=== PATIENT | female | born 1970 | race Caucasian/White ===

== ENCOUNTER 2019-12-29 08:17 | Outpatient (CLI) | payer BC, SELFPAY | END 2019-12-29 08:18 | disposition home or self-care (01) | PROVIDERS: PCP Family Medicine; Visit Provider Obstetrics & Gynecology | DX: Z01.812 Encounter for preprocedural laboratory examination (principal); Z11.59 Encounter for screening for other viral diseases; N93.9 Abnormal uterine and vaginal bleeding, unspecified | CPT/HCPCS: 36415; 86850; 86900; 86901 ==

== ENCOUNTER 2020-01-02 | Outpatient (CLI) | payer BC, SELFPAY ==
[2020-01-02 18:54] LABS: SARS-CoV-2 RNA PCR Negative
== END 2020-01-02 00:01 | disposition home or self-care (01) ==
LOC: ANHCOVIDDT
PROVIDERS: Visit Provider Obstetrics & Gynecology
DX: Z01.812 Encounter for preprocedural laboratory examination (principal); Z11.59 Encounter for screening for other viral diseases
CPT/HCPCS: 87635; C9803; U0003

== ENCOUNTER 2020-01-04 01:26 | Day surgery (SDC) | payer BC, SELFPAY ==
[2019-12-26 13:56] VITALS: BMI 22.2
[2020-01-04] VITALS (15 sets, daily range): BP systolic 107–142; BP diastolic 67–85; PULSE 51–86; RESP 12–19; TEMP 36.6–37.1; O2SAT 94–100
[2020-01-04] MEDS: LACTATED RINGERS 1,000 ML 30 ML IV CONT (06:40)
--- NOTE | 2020-01-04 06:47 | P.PNAN_ITS ---
Anes - Initial Pre Proc Eval Procedure: Operation Date: 01/04/20 07:30 Proposed Procedures p Total Laparoscopic Hysterectomy With Bilateral Salpingo-Oophorectomy - Eamon Mcqueen MD Date/Time: 01/04/20 06:47 Surgeon: Eamon Mcqueen MD Pre Op Diagnosis: Abnormal Uterine Bleeding Patient Data Age: 49 Gender: F Height: 5 ft 8 in Weight: 66.4 kg Allergies Allergy/AdvReac Type Severity Reaction Status Date / Time No Known Allergies Allergy Verified 12/26/19 13:54 Home Medications Medication Instructions Recorded Confirmed Type levothyroxine 100 mcg PO DAILY 12/26/19 12/26/19 History Patient hx anesthesia problems: none Family hx anesthesia problems: none ON LICENSE OF [facility] Past Medical History Medical History Hypothyroid Family History Family History Mother Patient's mother is in good health Father Patient's father is in good health Social History Social History Smoking status: Never smoker Alcohol intake: never Anes - Eval Final PreProcedure Day of Procedure 01/04/20 06:47 Patient weight: normal Heart: regular rate and rhythm Lungs: clear to auscultation Airway: Mallampati scale class II Neurological: alert and oriented Last oral intake: >/= 8 hours ASA classification: II Emergent: no Anesthetic plan: proceed Anesthesia type and monitoring: general ETT and standard monitoring Informed Consent: The patient's anesthetic plan and its attendant risks and be nefits were discussed with the patient/family/POA. Questions were solicited and answers provided to the satisfaction of the patient/family/POA.
[2020-01-04] MEDS: IBUPROFEN IV 800 MG/200 ML 800 MG/200 ML BAG 400 MG IVPB (07:00)
--- NOTE | 2020-01-04 07:25 | WPDHPUPDATE1 ---
History and Physical Update Update Date/Time: 01/04/20 07:25 History and Physical has been reviewed, including an updated exam of the patient. There are NO changes in the patient's condition. Risks, benefits, and alternatives have been discussed and questions answered. Patient agrees to proceed with procedure.
[2020-01-04] MEDS: ceFAZolin 2 GM/D5W 50 ML 2 GM/50 ML BAG IVPB (07:26)
--- NOTE | 2020-01-04 09:12 | P.OP_ITS ---
Procedure Note - Detailed Date of procedure: 01/04/20 Pre-op diagnosis: Abnormal Uterine Bleeding Severe menorrhagia Post-op diagnosis: same Procedure performed: Total laparoscopic hysterectomy bilateral salpingo- oophorectomy Description of procedure: The patient was taken to the operating room. She was prepped and draped in the dorsal lithotomy position. A speculum was placed in the vagina. The cervix was grasped with a tenaculum. Stay sutures were placed at 3 and 9:00 a.m. of 0 Vicryl. The stay sutures were brought through the Adonis up. The ASHIA manipulator was placed in the vagina with a fixed Adonis cup. The cup was then pushed up around the cervix. The sutures were tied to the handle of the ASHIA manipulator. A 5 mm incision was made on the abdominal skin of the left upper quadrant using a scalpel. A 5 mm trocar was inserted into the intra-abdominal cavity under direct visualization the scope. Pneumoperitoneum was achieved. An 11 mm incision was made in the left lower quadrant of the abdomen with a scalpel. A 11 mm trocar was inserted into the intra-abdominal cavity under direct visualization the scope. A 5 mm periumbilical incision was made. A 5 mm scope was placed into the intra-abdominal cavity under direct visualization of the scope. The ureters were identified. The ureters were observed to be away from the infundibulopelvic ligaments. These infundibulopelvic ligaments were i solated, cauterized, and transected with LigaSure cautery. This was done in a bilateral fashion. The para ovarian tissue along the pelvic sidewall was cauterized and transected in a bilateral fashion using the ligature cautery. The round ligaments were cauterized and transected bilaterally with LigaSure cautery. The broad ligaments were cauterized and transected along the lateral aspects of the uterus down the level of the uterine arteries. A bladder flap was created using sharp and blunt dissection. The ureters were dissected out bilaterally down to the level of the uterine arteries. The could be visualized from the pelvic brim down the uterine arteries. Staying very close to the cervix the parametrium was cauterized transected in a stepwise fashion down to the level of the Adonis cup. The Bladder flap was moved distally over the Adonis cup using sharp and blunt dissection. The cup was visualized and a complete 360 degree papillary around the cervix. An incision was made with unipolar cautery down under the Adonis cup creating a colpotomy incision all the way around the cervix. The uterus tubes and ovaries were taken out through the vagina. A pneumo occluder was placed in the vagina. The vagina was closed with 0 V lock suture in a running fashion. The ureters were identified again and found to be intact elevated and the uterine arteries. The pelvis was irrigated with a copious amount of antibiotic irrigation. The pneumoperitoneum was reduced. The trocars were removed. The skin was closed subcuticular 4 Monocryl covered with Dermabond. The pneumo occluder was removed from the vagina. The vagina was irrigated with Betadine. The patient tolerated the procedure well. She was taken to the recovery room in stable condition. Sponge lap and needle counts were correct x2. Anesthesia: GETA Surgeon: Eamon Mcqueen MD Estimated blood loss (mL): 50 Drains: No Packing: No Pathology: yes Complications: No immediate complications Condition: stable Disposition: PACU Findings: Grossly normal-appearing uterus tubes and ovaries.
--- NOTE | 2020-01-04 09:54 | OBPPTRN ---
Patient transferred to room # 288 via stretcher. Oriented to. Patient verbalizes understanding.
[2020-01-04] MEDS: KETOROLAC 30 MG/ML VIAL (*BKC) IV PUSH (12:08)
[2020-01-04] MEDS: DEXTROSE 5%/LACTATED RINGERS 1,000 ML 125 ML IV CONT (15:49)
[2020-01-05 04:50] VITALS: BP 121/83; PULSE 65; RESP 18; TEMP 36.5
[2020-01-05] MEDS: LEVOTHYROXINE SODIUM 100 MCG TABLET PO (06:53)
[2020-01-05] MEDS: IBUPROFEN 600 MG TABLET PO (07:02)
--- NOTE | 2020-01-05 08:07 | PM.GYNPNOP ---
DISTRICT SUPERINTENDENT - A/P Postoperative Procedures: Procedures Operation Date: 01/04/20 07:30 Actual Procedures Side Surgeon p Total Laparoscopic Hysterectomy With Bilateral Salpingo-Oophorectomy Not Applicable Eamon Mcqueen MD Postoperative day: 1 Postoperative status: doing well and other (Tollerating Regular Diet) Postoperative plan: routine post-op care and discharge Time Spent With Patient Time: Total time spent is greater than 50% in coordination of care (as documented) at patient's floor/unit and/or counseling patient: Time with patient: 15 - 25 minutes DISTRICT SUPERINTENDENT- PN:Subj Post-Op Subjective Date/time seen: 01/05/20 08:07 Subjective: patient reports feeling better, pain is well controlled and patient is tolerating oral intake Exam Const: General: cooperative, healthy appearing, comfortable and no acute distress Resp: Auscultation: no crackles, no rales, no rhonchi and no wheezes Cardio: Rhythm: regular rhythm Heart sounds: no click and no murmurs GI: Inspection: non-distended Auscultation: normal bowel sounds Other: Incisions - CDI Extrem: General: normal to inspection, no pedal edema and no calf tenderness DISTRICT SUPERINTENDENT - PN: Obj Data Vital Signs Vital Signs: Vital Signs - 24 hr 01/04/20 09:00 01/04/20 09:15 01/04/20 09:30 Temperature 97.8 F Pulse Rate 76 64 55 L Respiratory Rate 14 12 13 Blood Pressure 115/67 107/71 112/69 Pulse Oximetry 100 100 98 01/04/20 09:45 01/04/20 09:56 01/04/20 10:00 Temperature 98.8 F Pulse Rate 56 L 54 L 58 L Respiratory Rate 19 16 16 Blood Pressure 114/72 117/70 142/85 H Pulse Oximetry 99 100 98 01/04/20 10:15 01/04/20 10:30 01/04/20 11:00 Temperature Pulse Rate 51 L 54 L 67 Respiratory Rate 16 16 16 Blood Pressure 122/81 117/79 131/84 Pulse Oximetry 97 97 99 01/04/20 12:00 01/04/20 13:00 01/04/20 14:00 Temperature 98.2 F 98.2 F Pulse Rate 73 67 84 Respiratory Rate 16 16 16 Blood Pressure 123/77 120/82 119/79 Pulse Oximetry 95 96 94 01/04/20 15:55 01/04/20 19:20 01/04/20 23:50 Temperature 98.1 F 98.4 F 97.8 F Pulse Rate 86 81 56 L Respiratory Rate 18 17 17 Blood Pressure 134/82 114/77 113/72 Pulse Oximetry 01/05/20 04:50 Temperature 97.7 F Pulse Rate 65 Respiratory Rate 18 Blood Pressure 121/83 Pulse Oximetry Intake/Output Intake/Output: Intake & Output 01/02/20 01/03/20 01/04/20 01/05/20 23:59 23:59 23:59 23:59 Intake Total 850 1000 Output Total 750 1450 Balance 100 -450 Meds/Results Medications: Active Medications Generic Name Dose Route Start Last Admin Trade Name Freq PRN Reason Stop Dose Admin Hydrocodone Bitart/Acetaminophen 1 tab 01/04/20 09:47 Yulan 5-325 Mg PO Q3H PRN Pain Rated 5 or Less Hydrocodone Bitart/Acetaminophen 1 tab 01/04/20 09:47 Yulan 10-325 Mg PO Q3H PRN Pain Rated 6 or Greater Dextrose/Lactated Ringer's 1,000 mls @ 125 mls/hr 01/04/20 15:40 01/04/20 15:49 Dextrose 5%/Lactated Ringers IV CONT 125 mls/hr .Q8H JOHN Administration Ibuprofen 600 mg 01/04/20 09:47 01/05/20 07:02 Motrin PO 600 mg Q6H PRN Administration Cramping Ketorolac Tromethamine 30 mg 01/04/20 09:47 01/04/20 12:08 Toradol Inj IV PUSH 01/09/20 09:48 30 mg Q6H PRN Administration Pain Rated 4-6 Levothyroxine Sodium 100 mcg 01/05/20 06:30 01/05/20 06:53 Synthroid PO 100 mcg DAILY@0630 JOHN Administration Naloxone HCl 0.1 mg 01/04/20 09:47 Narcan IV PUSH Q2M PRN Respiratory rate less than 10
[2020-01-05 08:20] VITALS: BP 120/72; PULSE 59; RESP 16; TEMP 37.1; O2SAT 99
== END 2020-01-05 11:30 | disposition home or self-care (01) ==
LOC: ANHSURGERY 06:13 → ANHOB2 15:00
PROVIDERS: Visit Provider Obstetrics & Gynecology
PROC: 0UT9FZZ Resection of Uterus, Via Natural or Artificial Opening With Percutaneous Endoscopic Assistance (ICD-10-PCS; CPT 58571; principal; 2020-01-04 07:30)
DX: N92.0 Excessive and frequent menstruation with regular cycle (principal); N83.02 Follicular cyst of left ovary; N83.01 Follicular cyst of right ovary; N83.8 Other noninflammatory disorders of ovary, fallopian tube and broad ligament; E03.9 Hypothyroidism, unspecified
CPT/HCPCS: 58571; 88307; 99199; A9270; J0690; J1100; J1741; J1885; J2250; J2270; J2405; J2704; J7030; J7120; J7121

== ENCOUNTER → 2021-01-29 17:35 | Outpatient (CLI) | payer BC, SELFPAY ==
--- NOTE | ~2021-01-29 | MM_ITS ---
EXAMINATION: MM scrn salina implant BI w idris HISTORY: Screening mammogram TECHNIQUE: Craniocaudal and mediolateral oblique 3-D tomosynthesis images with implant displacement a nd synthetic 2-D images were generated. Craniocaudal and mediolateral oblique views of the breasts wi thout implant displacement were obtained using full field digital mammography. CAD analysis was submi tted and interpreted. COMPARISON: 01/22/2019, 12/29/2017, 11/28/2016 bilateral implant digital screening mammogram examination s BREAST PARENCHYMAL COMPOSITION: There are scattered areas of fibroglandular density. FINDINGS: There is no evidence of suspicious mass, calcification, or architectural distortion to sugg est malignancy in either breast. There has been no suspicious interval change. IMPRESSION: 1. No mammographic evidence of malignancy. 2. Recommend routine screening mammography in one year. BI-RADS Category 1: Negative Reviewed, dictated and finalized at location A.
== END ==
PROVIDERS: Visit Provider Obstetrics & Gynecology
DX: Z12.31 Encounter for screening mammogram for malignant neoplasm of breast (principal)
CPT/HCPCS: 77063; 77067

== ENCOUNTER → 2022-05-28 10:28 | Outpatient (CLI) | payer OTHER, SELFPAY ==
--- NOTE | ~2022-05-28 | DEXA_ITS ---
Bone Density Report Name: JOSELUIS MEJIA Age: 51 Sex: Female Ethnicity: White Date of : 1970 Indication: postmenopausal; screening for osteoporosis; height loss; hysterectomy; Referring Provider: Ros Padilla Study: Bone densitometry was performed. Exam Date: May 28, 2022 Accession number: [id number] Bone Density: Region BMD T-score Z-score Classification AP Spine (L1-L4) 1.150 0.9 1.8 Normal Femoral Neck (Left) 0.859 0.1 1.0 Normal Total Hip (Left) 1.024 0.7 1.2 Normal Femoral Neck (Right) 0.957 1.0 1.9 Normal Total Hip (Right) 1.086 1.2 1.8 Normal Total Hip Mean 1.055 1.0 1.5 Normal World Health Organization criteria for BMD impression classify patients as: Normal (T-score at or above -1.0), Osteopenia (T-score between -1.0 and -2.5), or Osteoporosis (T-score at or below -2.5). 10-year Fracture Risk: FRAX not reported because: All T-scores for Spine Total, Hip Total, Femoral Neck at or above -1.0 Treated for osteoporosis Clinical Information Provided by Patient: Is being treated for osteoporosis Has used the following medications: HRT (i.e. estrogen/hormone therapy) Has the following medical conditions: Hysterectomy Patient maximum height was 68.5 Menopause Age: 50 Does not regularly consume dairy products Drinks caffeinated beverages Onset of menses at age 11 Number of children 3 Impression: The patient has normal bone mass. Discussion: It is important to ask patients whether they are taking their medications and to encourage continued and appropriate compliance with their osteoporosis therapies to reduce fracture risk. It is also important to review their risk factors and encourage appropriate calcium and vitamin D intakes, exercise, fall prevention and other lifestyle measures. Follow-Up: Consider a repeat BMD and Vertebral Fracture Assessment (VFA) exam in 2 years or sooner if medically necessary, to reassess this patient's status. Reported by: ARY on 05/28/2022 10:52:00 AM. Reviewed, dictated and finalized at location AJuan CISNEROS
== END ==
PROVIDERS: PCP Hospitalist; Visit Provider Advanced Practice Midwife
DX: Z78.0 Asymptomatic menopausal state (principal)
CPT/HCPCS: 77080

== ENCOUNTER → 2022-07-26 08:15 | Outpatient (CLI) | payer OTHER, SELFPAY ==
--- NOTE | ~2022-07-26 | MM_ITS ---
EXAMINATION: MM scrn salina implant BI w idris HISTORY: Screening mammogram TECHNIQUE: Craniocaudal and mediolateral oblique 3-D tomosynthesis images with implant displacement a nd synthetic 2-D images were generated. Craniocaudal and mediolateral oblique views of the breasts wi thout implant displacement were obtained using full field digital mammography. CAD analysis was submi tted and interpreted. COMPARISON: 01/29/2021, 01/22/2019, 12/29/2017 bilateral screening mammogram examinations BREAST PARENCHYMAL COMPOSITION: The breasts are heterogeneously dense, which may obscure small masses . FINDINGS: Status post bilateral augmentation mammoplasty. There is no evidence of suspicious mass, ca lcification, or architectural distortion to suggest malignancy in either breast. There has been no zepeda spicious interval change. IMPRESSION: 1. No mammographic evidence of malignancy. 2. Recommend routine screening mammography in one year. BI-RADS Category 1: Negative Reviewed, dictated and finalized at location A. [employer]
== END ==
PROVIDERS: PCP Obstetrics & Gynecology; Visit Provider Obstetrics & Gynecology
DX: Z12.31 Encounter for screening mammogram for malignant neoplasm of breast (principal)
CPT/HCPCS: 77063; 77067

== ENCOUNTER → 2023-06-12 15:37 | Outpatient (CLI) | payer OTHER, SELFPAY ==
--- NOTE | ~2023-06-12 | XR_ITS ---
EXAMINATION: XR chest 2V 06/12/2023 15:53 INDICATION: Wheezing and cough for 2 months PROCEDURE: 2 view chest COMPARISON: No prior studies for comparison. FINDINGS: The lungs are clear. The cardiomediastinal silhouette is within normal limits. There are no pleural effusions. There is no pneumothorax suspected. IMPRESSION: 1: NO ACUTE CARDIOPULMONARY DISEASE. Reviewed, dictated and finalized at location B. [employer]
== END ==
DX: R06.2 Wheezing (principal); R05.9 Cough, unspecified
CPT/HCPCS: 71046

== ENCOUNTER 2023-11-06 15:26 | Emergency (ER) | payer OTHER, SELFPAY ==
[2023-11-06 15:37] VITALS: BP 173/98; PULSE 111; RESP 16; TEMP 38.3; O2SAT 100
--- NOTE | 2023-11-06 16:01 | ED.URI ---
HPI - URI/Sore Throat General Chief Complaint: Upper Respiratory Infection Stated Complaint: fever/cough Time Seen by Provider: 11/06/23 16:01 Source: patient and RN notes reviewed Mode of arrival: ambulatory Limitations: no limitations History of Present Illness HPI Narrative: 53-year-old female presented for complaint of cough for about 1 month, started with fever for the last 3 days. He denies shortness of breath, wheezing, nausea, vomiting, diarrhea or lethargy. 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 Has not tried anything for symptoms. MD elicited complaint: cough Related Data Home Medications Medication Instructions Recorded Confirmed levothyroxine 100 mcg tablet 100 mcg PO DAILY 12/26/19 01/04/20 Allergies Allergy/AdvReac Type Severity Reaction Status Date / Time No Known Allergies Allergy Verified 07/29/22 10:29 Review of Systems Review of Systems: CONSTITUTIONAL: Endorses chills, sweats, fever EYES: Denies visual changes, redness, or discharge ENT: Denies rhinorrhea, congestion, sinus pain, otalgia, sore throat CARDIOVASCULAR: Denies chest pain, palpitations, edema RESPIRATORY: Reports cough, Denies dyspnea GASTROINTESTINAL: Denies abdominal pain, nausea, vomiting, diarrhea SKIN: Denies rash or itching MUSCULOSKELETAL: denies myalgia NEUROLOGIC: Denies headache PMFSH Past Medical History Medical History Hypothyroid Family History Family History Mother Patient's mother is in good health Father Patient's father is in good health Social History Social History Smoking status: Never smoker Alcohol intake: never Exam Narrative: GENERAL: Mildly Ill-appearing, nontoxic no acute distress. EYES: PERRLA, conjunctivae clear ENT: Mucous membranes moist. TMs pearly mckeon with dull light reflex bilaterally; no tragal tenderness. Oropharynx not erythematous without lesions or exudate, no drooling, no hoarseness, no trismus, uvula midline. No tripod positioning, muffled voice, soft palate or pharyngeal wall bulging NECK: Supple. No lymphadenopathy CHEST: Clear to auscultation, breath sounds equal. frequent nonproductive cough. No wheezing, rhonchi, rales, or stridor. No respiratory distress, speaks in full sentences. HEART: Regular rate and rhythm. No murmur heard. SKIN: Warm, dry, no rash. NEURO: Alert and oriented x3. PSYCH: Normal mood and affect Course Course Emergency Course: Patient is aware of diagnosis, understands and agrees to treatment plan. Anticipatory guidance given. Patient agrees to follow-up as directed and is aware of reasons to seek care at the emergency department. Portions of this record may have been created with voice recognition software Level of Care: Express Care Visit Vital Signs Vital signs: Vital Signs Temperature 101 F H 11/06/23 15:37 Pulse Rate 111 H 11/06/23 15:37 Respiratory Rate 16 11/06/23 15:37 Blood Pressure 173/98 H 11/06/23 15:37 Pulse Oximetry 100 11/06/23 15:37 Oxygen Delivery Room Air 11/06/23 15:37 Temperature 101 F H 11/06/23 15:37 Pulse Rate 111 H 11/06/23 15:37 Respiratory Rate 16 11/06/23 15:37 Blood Pressure 173/98 H 11/06/23 15:37 Pulse Oximetry 100 11/06/23 15:37 Oxygen Delivery Room Air 11/06/23 15:37 reviewed MDM - URI/Sore Throat MDM Narrative Medical decision making narrative: Discussed physical exam findings. patient declined viral testing and will treat symptoms accordingly.Advised supportive measures and signs/symptoms to go to the ER. Pt is appropriate for outpt treatment and f/u. Differential Diagnosis Differential diagnosis: Likely upper respiratory infection, sinusitis, viral infection, bronchitis, influenza and pharyngitis Discharge Plan Discharge Clinical Impression:
== END 2023-11-06 16:26 | disposition home or self-care (01) ==
PROVIDERS: Emergency Provider Nurse Practitioner Family; PCP Hospitalist
DX: J40 Bronchitis, not specified as acute or chronic (principal); E03.9 Hypothyroidism, unspecified
CPT/HCPCS: 99203; G0463